=== PATIENT | female | born 1985 ===

== ENCOUNTER 2016-09-13 12:09 | Emergency (ER) | payer SELFPAY ==
--- NOTE | ~2016-09-13 | ER ---
PATIENT'S NAME: KAITLYNN MCNALLY [facility] AGE: 31 Y [address] ROOM: [place] [address] LOCATION: ED ADMIT DATE: 09/13/2016 ER/Outpatient Report DISCHARGE DATE: 09/13/2016 FAMILY PHYSICIAN: PHYSICIAN, NO ATTENDING PHYSICIAN: Panfilo Chery Time of Arrival: 1237 hours. Time of Evaluation: 1240 hours. CHIEF COMPLAINT: Headache, nausea, and dizziness. HISTORY OF PRESENT ILLNESS: The patient states that she has not felt well for the past 5 days. She has had a headache that is not responding to her migraine pills. She is not able to tell us what the migraine pills are. She has been nauseated, has not vomited. States she has a history of high blood pressure but is not currently on any medicine for it, is not being treated for it. Denies having any chest pain. She has not had a cough, does not feel short of breath. She has not felt febrile. Denies having any abdominal pain. She has had normal bowel and bladder function. The patient does speak [place], and the [employer] was used to gather information. ALLERGIES: NO KNOWN ALLERGIES. MEDICATIONS: Migraine pills. PAST MEDICAL HISTORY: Hypertension. PAST SURGICAL HISTORY: x3. SOCIAL HISTORY: She denies use of tobacco, drugs, or alcohol. REVIEW OF SYSTEMS: All negative other than those mentioned in the HPI. PHYSICAL EXAMINATION: VITAL SIGNS: She weighs 88 kg, blood pressure initially is 173/114, pulse of 87, respirations 16, temperature of 98.9, O2 saturation is 98% on room air. GENERAL: She is awake, alert, and oriented x4. PATIENT'S NAME: KAITLYNN MCNALLY [facility] AGE: 31 Y [address] ROOM: [place] [address] LOCATION: ED ADMIT DATE: 09/13/2016 ER/Outpatient Report DISCHARGE DATE: 09/13/2016 FAMILY PHYSICIAN: PHYSICIAN, CARISSA ATTENDING PHYSICIAN: Panfilo Chery SKIN: [place], warm, and dry. RESPIRATIONS: Even and nonlabored. HEENT: Pupils are equal and reactive to light. Extraocular movement is intact. Negative nystagmus. TMs are clear. Nasal is boggy. Oropharynx is clear. NECK: Supple. No lymphadenopathy. LUNGS: Lung sounds are clear throughout. HEART: Regular rate and rhythm. ABDOMEN: Soft, nondistended. Bowel sounds are present. The patient states her headache is primarily posterior scalp area. EMERGENCY DEPARTMENT COURSE: Saline lock was initiated. Lab work was drawn. Fluids of normal saline were started. She was given Zofran 4 mg IV and Toradol 30 mg IV. CBC was within normal limits. Chem panel is within normal limits. The Zofran did calm down the nausea. She still had a bit of a headache and dizziness. She was given Benadryl 25 mg IV. Orthostatic vital signs were taken. Lying blood pressure was 168/100, pulse of 83; sitting 173/108, pulse of 78; standing 177/107, pulse of 81. She was slightly dizzy with orthostatics. She was allowed to lay back down, and fluids were continued to infuse. After the fluids were infused, she stated the headache and dizziness had improved. Her blood pressure and pulse stayed stable. O2 saturation was 95 or greater throughout the ER visit. IMPRESSION: 1. Headache. 2. Dizziness. 3. Hypertension. PLAN: Home, rest, fluids. She is to follow up on Thursday with her primary provider to discuss her blood pressure. She verbalized understanding. VELMA EID APRN FOR [facility]/sendy /[id number] d: 09/13/162024 t: 09/16/16 1124, OUTPATIENT REPORT
[2016-09-13 13:13] LABS: BASOPHIL % 0.3 %; EOSINOPHIL # 0.1 K/uL (0.0-0.5); EOSINOPHIL % 0.9 %; HEMATOCRIT 46.4 % (33.0-46.0); HEMOGLOBIN 15.9 g/dL (11.0-15.0); IMMATURE GRANULOCYTE % 0.2 %; LYMPHOCYTE # 2.4 K/uL (0.8-4.0); MCH 30.5 pg (27.0-34.0); MCHC 34.3 gm/dL (32.0-36.5); MCV 88.9 fl (83.0-98.0); MONOCYTE # 0.7 K/uL (0.0-1.0); MONOCYTE % 7.1 %; NEUTROPHIL # (ANC) 6.5 K/uL (1.8-7.8); NEUTROPHIL % 66.5 %; NRBC % 0 /100WBC (0-0.00); PLATELET COUNT 416 K/uL (150-450); RBC 5.22 M/uL (3.50-5.50); RDW-CV 13.1 % (11.9-14.6); WBC 9.7 K/uL (4.0-11.0)
[2016-09-13 13:33] LABS: ALBUMIN 3.5 gm/dL (3.5-5.0); ANION GAP 11.7 (10.0-19.0); CALCIUM 9.2 mg/dL (8.5-10.5); CREATININE 1.4 mg/dL (0.5-1.1); POTASSIUM 3.7 mMol/L (3.7-5.1); TOTAL BILIRUBIN 0.4 mg/dL (0.0-1.5); TOTAL PROTEIN 8.2 g/dL (6.0-8.4)
== END 2016-09-13 15:27 | disposition disaster alternative care site (69) ==
LOC: GMED 12:09
PROVIDERS: Nurse Practitioner Family
DX: I10 Essential (primary) hypertension (principal); Z98.890 Other specified postprocedural states; R42 Dizziness and giddiness
CPT/HCPCS: J1200; J1885; J2405; J7030